=== PATIENT | female | born 1960 | race Caucasian/White ===

== ENCOUNTER 2018-10-06 13:56 | Emergency (ER) | payer OTHER, SELFPAY ==
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
== END 2018-10-06 15:17 | disposition home or self-care (01) ==
LOC: SCSER 13:56
DX: S39.012A Strain of muscle, fascia and tendon of lower back, initial encounter (principal); E03.9 Hypothyroidism, unspecified; Z79.899 Other long term (current) drug therapy; V43.52XA Car driver injured in collision with other type car in traffic accident, initial encounter
CPT/HCPCS: 72100

== ENCOUNTER 2018-12-19 09:48 | Emergency (ER) | payer BC, OTHER, SELFPAY ==
[2018-12-19] MEDS ORDERED: Ketorolac Tromethamine 60 MG/2 ML VIAL ONE (10:22)
--- NOTE | 2018-12-19 11:33 | RAD ---
RIGHT KNEE RADIOGRAPHS 4 VIEWS: DATE: 12/19/2018. PROVIDED CLINICAL HISTORY: Right knee pain. FINDINGS: There is no evidence for a fracture or other acute osseous abnormality. If there is persistent clini angela concern, conservative management and followup imaging are advised. IMPRESSION: As above. POS: [facility]
== END 2018-12-19 10:53 | disposition home or self-care (01) ==
LOC: SCSER 09:48
DX: M25.561 Pain in right knee (principal); E03.9 Hypothyroidism, unspecified; Z79.899 Other long term (current) drug therapy
CPT/HCPCS: 96372; J1885

== ENCOUNTER 2023-04-05 19:30 | Outpatient (CLI) | payer BC | END 2023-04-05 19:31 | disposition home or self-care (01) | LOC: SLEEPLAB 19:30 | PROVIDERS: ATTEND Family Medicine | DX: G47.33 Obstructive sleep apnea (adult) (pediatric) (principal); G47.10 Hypersomnia, unspecified; G47.9 Sleep disorder, unspecified; R53.83 Other fatigue; G47.61 Periodic limb movement disorder; R51.9 Headache, unspecified; E11.9 Type 2 diabetes mellitus without complications; K21.9 Gastro-esophageal reflux disease without esophagitis; E66.9 Obesity, unspecified; R06.83 Snoring; I10 Essential (primary) hypertension; Z68.41 Body mass index [BMI] 40.0-44.9, adult | CPT/HCPCS: 95811 ==